=== PATIENT | female | born 1945 | race Caucasian/White ===

== ENCOUNTER 2017-02-19 16:36 | Emergency (ER) | payer OTHER, MEDICARE ==
[~2017-02-19] VITALS: Ht 162.6 cm; Wt 77.1 kg
[~2017-02-19 16:36] MED LIST: DILT240C91 PO; FEXO60TA PO; IBAN150T4 PO; LEVO50TA77 PO; VALS160T2 PO
[2017-02-19 16:45] VITALS: BP_SYST 150
--- NOTE | 2017-02-19 16:45 | NUR ---
Patient to ER bed 2 to gown for evaluation. Side rails up. Report given to RAJESH ALDRIDGE.
--- NOTE | 2017-02-19 16:50 | NUR ---
DR. SU AT BEDSIDE EXAMINING THE PT.
--- NOTE | 2017-02-19 17:00 | NUR ---
PT. PRESENTED TO ER AAOx4 C/O TENDERNESS TO TOUCH TO LEFT UPPER THIGH. PT STATES SHE NOTICED BUMP TODAY, C/O "FEELING OF DISCOMFORT", +REDNESS +WARMTH, CLEAR SPEECH FOLLOWS COMMANDS
[2017-02-19 17:55] VITALS: BP_SYST 131
--- NOTE | 2017-02-19 17:55 | NUR ---
Patient given written and verbal discharge instructions and verbalizes understanding. ER MD dR. SU discussed with patient the results and treatment provided. Patient in stable condition. ID arm band removed. Rx of CLINDAMYCIN BACITRACIN given. Patient educated on pain management and to follow up with PMD. Pain Scale 0/10 Opportunity for questions provided and answered.
== END 2017-02-19 17:55 | disposition home or self-care (01) ==
LOC: SED 16:36
DX: L03.116 Cellulitis of left lower limb (principal); I25.2 Old myocardial infarction; I10 Essential (primary) hypertension; E78.5 Hyperlipidemia, unspecified; Z88.2 Allergy status to sulfonamides; Z88.1 Allergy status to other antibiotic agents; Z88.0 Allergy status to penicillin
CPT/HCPCS: 99283

== ENCOUNTER 2017-05-12 05:30 | Inpatient (IN) | payer OTHER, MEDICARE ==
[~2017-05-12] VITALS: Ht 162.6 cm; Wt 79.4 kg
[2017-05-12] MEDS ORDERED: CARV3.1246 PO (07:20)
[2017-05-12] MEDS ORDERED: OLME20TA14 PO (07:20)
[2017-05-12] MEDS ORDERED: TICA90TA PO (07:20)
[2017-05-12] MEDS ORDERED: SYN75 PO (07:20)
[2017-05-12] MEDS ORDERED: SIMV10TA2 PO (07:20)
[2017-05-12] MEDS ORDERED: LR 1,000 ML IV SCH (07:52)
[2017-05-12] MEDS ORDERED: MEPERIDINE HCL/PF 25 MG/ML DISP.SYRIN IVP PRN ×2 (08:00)
[2017-05-12] MEDS ORDERED: HYDROmorphone 2 MG/ML VIAL IVP PRN ×2 (08:00)
[2017-05-12] MEDS ORDERED: HYDROmorphone 1 MG INJ. 1 MG/ML AMPUL IVP PRN (08:00)
[2017-05-12] MEDS ORDERED: ONDANSETRON HCL 4 MG/2 ML VIAL IVP PRN ×2 (08:00→10:00)
[2017-05-12] MEDS ORDERED: HYDROcodone/ACETAMIN 5-325 MG TAB (NORCO/ VICODIN) PO PRN (10:00)
--- NOTE | 2017-05-12 11:05 | NUR ---
Patient Received Awake, alert and oriented x4, denies pain, assessment complete. Patient has a surgical dressing in place, clean, dry and intact, no bleeding, no drainage at this time, educated the patient to no hyperextend her neck or twist her neck too much, report numbness/tingling/pain/nausea, patient verbalized understanding, educated the patient alteration inspector light system and to call for any assistance, patient verbalized understanding, bed in lowest position, three side rails up, bed alarm on, fall and aspiration precautions in place, HOB 30 degrees at this time.
[2017-05-12 11:09] VITALS: BP_SYST 118
--- NOTE | 2017-05-12 13:17 | NUR ---
RN Rounds Patient resting in bed, awake, denies pain, denies nausea, eating lunch at this time, aspiration precautions in place, no other needs at this time, bed in lowest position, two side rails up, bed alarm on, call light within reach, fall precautions in place.
[2017-05-12] MEDS: NORMAL SALINE 5 ML DISP.SYRIN IVF SCH ×4 (14:00→21:31)
--- NOTE | 2017-05-12 15:47 | NUR ---
RN Rounds Patient resting in bed, eyes closed, breathing is even and unlabored, no signs of distress, bed in lowest position, three side rails up, bed alarm on, call light within reach, fall and aspiration precautions in place.
[2017-05-12 16:57] VITALS: BP_SYST 100
--- NOTE | 2017-05-12 17:16 | NUR ---
RN Rounds Patient calling at this time, asking for assistance the restroom, assisted the patient, patient is ambulatory with steady gait, assisted back into bed, no other needs at this time, bed in lowest position, two side rails up, bed alarm on, call light within reach, fall and aspiration precautions in place.
--- NOTE | 2017-05-12 18:37 | NUR ---
Closing Note Patient resting in bed, awake, denies pain, eating dinner at this time, tolerating well, aspiration precautions in place, all needs met, will endorse report to NOC shift nurse, bed in lowest position, two side rails up, bed alarm on, fall precautions also in place.
[2017-05-12 19:40] VITALS: BP_SYST 137
--- NOTE | 2017-05-12 19:40 | NUR ---
INITIAL NOTE Patient resting on the bed comfortable. No acute distress. Respiration even and unlabored. Denied of pain. AO x 4. Skin warm and dry to touch. IV intact to left hand, no redness, no swelling. On s/p of total thyroidectomy, dressing intact to neck, no bleeding noted. Incentive spirometer at bedside, educated how to use it. Able to demonstrate back with 1600ml. Encourage to use IS as tolerated, verbally understanding. Discussed the safety issue, use call light when need help, and plan of care, verbally understanding. SCD in placed. Safety measure maintained. Bed in low position, side rails up. Call light within reached. Will continue to monitor.
--- NOTE | 2017-05-12 20:16 | NUR ---
RECEIVED THE CALL FROM DR. ABDUL, DUN Dr. Abdul asked how the patient doing. Told Dr. Abdul patient no acute distress, denied of pain, ambulated to bathroom with steady gait. stated that to call him if the calcium level abnormal, the order was scheduled at 2200. .
[2017-05-12] MEDS: CARVEDILOL 3.125 MG TABLET (COREG) PO SCH (21:30)
[2017-05-12] MEDS: VALSARTAN 160 MG TABLET (DIOVAN) PO SCH (21:30)
[2017-05-12] MEDS: DEXAMETHASONE SOD PHOSPHATE 4 MG/ML VIAL IVP SCH ×2 (21:32→21:35)
--- NOTE | 2017-05-12 21:38 | NUR ---
AMBULATED TO BATHROOM. NO ACUTE DISTRESS.
--- NOTE | 2017-05-12 22:46 | NUR ---
REPORTED CALCIUM RESULT Called Dr. Mckeon Dun for calcium=8.1, normal range=8.4-11.0. Dr. Mckeon with the order to recheck calcium at 0400 in the morning. Order repeat and okay to . Also informed MD patient refused Decadron 8mg and patient stated that is no pain, don't want the medication.
[2017-05-12 23:49] VITALS: BP_SYST 115
--- NOTE | 2017-05-13 00:50 | NUR ---
ROUND Patient resting on the bed with eyes closed. No acute distress. Respiration even and unlabored. Safety measure maintained. Bed in low position, side rails up. Call light within reached. Continue to monitor.
--- NOTE | 2017-05-13 02:05 | NUR ---
ROUND Patient resting on the bed with eyes closed. No acute distress. Safety measure maintained. Bed in low position, side rails up. Call light within reached. Continue to monitor.
[2017-05-13 03:35] VITALS: BP_SYST 118
--- NOTE | 2017-05-13 03:58 | NUR ---
ROUND Patient resting on the bed with eyes closed. No acute distress. Respiration even and unlabored. Dressing intact to neck area, no bleeding noted. Safety measure maintained. Bed in low position, side rails up. Call light within reached. Continue to monitor.
--- NOTE | 2017-05-13 05:08 | NUR ---
REPORTED CALCIUM RESULT Called Amanda Henriquez for calcium=8.0. Dr. Mckeon stated " That is fine. I will come to see the patient."
[2017-05-13] MEDS: DEXAMETHASONE SOD PHOSPHATE 4 MG/ML VIAL IVP SCH (06:00)
[2017-05-13 06:13] VITALS: BP_SYST 118
[2017-05-13] MEDS: NORMAL SALINE 5 ML DISP.SYRIN IVF SCH ×2 (06:30→06:32)
--- NOTE | 2017-05-13 06:56 | NUR ---
CLOSING NOTE Patient resting on the bed comfortable. No acute distress. Respiration even and unlabored. Denied of pain the whole shift. Refused the schedule pain med. IV intact to left hand, no redness, no swelling. On s/p of thyroidectomy, dressing intact to neck, no bleeding noted. SCD in placed. Ambulated to bathroom during shift. All needs met. Hourly rounding during shift. Safety measure maintained. Bed in low position, side rails up. Call light within reached. Will endorse to morning shift nurse.
--- NOTE | 2017-05-13 07:23 | NUR ---
SEEN BY DR. FRANKO Mckeon visited and seen patient with order discharge home this morning. Patient have to following up appointment in one week in Dr. Mckeon's office. Three medications with written prescription placed in patient's chart.
--- NOTE | 2017-05-13 07:45 | NUR ---
AM Rounds Patient resting in bed, awake, alert and oriented x4, denies pain, dressing removed by Dr. Mckeon this morning, incision site is clean and dry, no redness no swelling, educated the patient nutrition technician light system and to call for any assistance, patient verbalized understanding at this time, assisted the patient to the restroom, patient is ambulatory with steady gait, assisted patient back to bed, patient is aware of discharge for today, bed in lowest position, two side rails up, call light within reach, fall and aspiration precautions in place.
[2017-05-13 08:00] VITALS: BP_SYST 119
[2017-05-13] MEDS ORDERED: OLMESARTAN MEDOXOMIL 20 MG TABLET PO SCH (09:00)
[2017-05-13] MEDS: VALSARTAN 160 MG TABLET (DIOVAN) PO SCH (09:00)
[2017-05-13] MEDS ORDERED: LOSARTAN POTASSIUM 50 MG TABLET (COZAAR) PO SCH (09:00)
[2017-05-13] MEDS ORDERED: DILTIAZEM HCL 240 MG CAP.SR.24H PO SCH (09:00)
[2017-05-13] MEDS ORDERED: LEVOTHYROXINE SODIUM 0.05 MG TABLET PO SCH (09:00)
[2017-05-13] MEDS: CARVEDILOL 3.125 MG TABLET (COREG) PO SCH (09:30)
--- NOTE | 2017-05-13 09:30 | NUR ---
RN Rounds/Medications Patient resting in bed, denies pain, educated on medications, clarified patient's home medications, patient states she does not take some of the blood pressure medications, patient tolerated medications well, updated on discharge for today, no other needs at this time, bed in lowest position, two side rails up, call light within reach, patient's friend is at bedside.
[2017-05-13 10:15] VITALS: BP_SYST 119
--- NOTE | 2017-05-13 10:35 | NUR ---
D/C Patient Patient given medication reconciliation form and D/C instructions. Exit Care provided. Patient verbalized understanding. MD discussed with patient the results and treatment provided. Ambulatory with steady gait for discharge to home. Patient in stable condition, ID band removed. IV catheter removed, intact and dressing applied, no active bleeding. Rx of tylenol #3, calcium carbonate, clindamycin given. Patient educated on pain management. All belongings sent with patient.
[2017-05-13] MEDS ORDERED: ACET-1172 PO (10:38)
[2017-05-13] MEDS ORDERED: CALC500T3 PO (10:38)
[2017-05-13] MEDS ORDERED: CLIN-77 PO (10:38)
--- NOTE | 2017-05-16 15:13 | NUR ---
Discharge Follow Up Phone Call [employer] phoned patient, , and left a voicemail message. Patient returned the call. Patient stated she was doing well. She filled her prescriptions, but is waiting on the calcium. She has a follow up appointment made with her PCP on 05/19/17. She had no questions or concerns.
== END 2017-05-13 10:35 | disposition home or self-care (01) | DRG 627 ==
LOC: SMU 05:30 → STU 11:06
PROVIDERS: ADMIT Otolaryngology Plastic Surgery within the Head & Neck; ATTEND Otolaryngology Plastic Surgery within the Head & Neck
PROC: 4A11X4G Monitoring of Peripheral Nervous Electrical Activity, Intraoperative, External Approach (ICD-10-PCS; 2017-05-12)
PROC: 0GTG0ZZ Resection of Left Thyroid Gland Lobe, Open Approach (ICD-10-PCS; principal; 2017-05-12 07:30)
DX: E04.9 Nontoxic goiter, unspecified (principal); I10 Essential (primary) hypertension; I25.10 Atherosclerotic heart disease of native coronary artery without angina pectoris; M81.0 Age-related osteoporosis without current pathological fracture; E78.5 Hyperlipidemia, unspecified; I25.2 Old myocardial infarction; Z95.5 Presence of coronary angioplasty implant and graft; Z98.49 Cataract extraction status, unspecified eye; Z90.49 Acquired absence of other specified parts of digestive tract; Z82.0 Family history of epilepsy and other diseases of the nervous system; Z82.49 Family history of ischemic heart disease and other diseases of the circulatory system; Z83.3 Family history of diabetes mellitus
CPT/HCPCS: 36415; 82310-TC; 87081; 88307; C1782; J1100; J7120

== ENCOUNTER 2019-04-17 20:51 | Emergency (ER) | payer OTHER, MEDICARE ==
[~2019-04-17] VITALS: Ht 160 cm; Wt 82.6 kg
[~2019-04-17 20:51] MED LIST changes: +ACET-1172 PO; +CALC500T3 PO; +CARV3.1246 PO; +CLIN300C11 PO; +IBAN150T PO; -IBAN150T4 PO; -LEVO50TA77 PO; +OLME20TA14 PO; +SIMV10TA2 PO; +SYN75 PO; +TICA90TA PO
[2019-04-17 21:00] VITALS: BP_SYST 163
--- NOTE | 2019-04-17 21:10 | NUR ---
Patient triaged and placed in waiting room . VSS and patient appears in no acute distress at this time. Accompanied by self , awaiting available bed, and MD notified of need for MSE.
--- NOTE | 2019-04-18 01:48 | NUR ---
Pt called in x 3, no answer
--- NOTE | 2019-04-18 01:48 | NUR ---
Patient left without being seen. No further treatment provided. ER MD aware
== END 2019-04-18 01:48 | disposition left against medical advice (07) ==
LOC: SED 20:51
DX: R22.0 Localized swelling, mass and lump, head (principal); Z53.21 Procedure and treatment not carried out due to patient leaving prior to being seen by health care provider